=== PATIENT | male | born 1965 | race Caucasian/White ===

== ENCOUNTER 2016-12-13 13:04 | Inpatient (IN) | payer OTHER ==
[2016-12-13] MEDS ORDERED: NORMAL SALINE 1000 ML 1,000 ML IV PRN ×2 (13:17→15:58)
[2016-12-13] MEDS ORDERED: ONDANSETRON HCL INJ/PF 4 MG/2 ML SDV IV ONE (13:17)
[2016-12-13] MEDS ORDERED: MORPHINE SULFATE 10 MG/ML INJ IV ONE (13:17)
--- NOTE | 2016-12-13 13:19 | ER Document Report ---
ED Medical Screen (RME) - General Chief Complaint: Abdominal Pain Stated Complaint: ABDOMINAL PAIN Time Seen by Provider: 12/13/16 13:16 Notes: Patient states he started last evening with right lower quadrant pain. He has had persistent pain and now has fever. It hurts when he moves or urinates. He also states she has had decreased urine output. He states he has had no bowel movements. He denies any previous history of abdominal problems or surgeries. He had nausea but no vomiting. TRAVEL OUTSIDE OF THE [place] IN LAST 30 DAYS: No - Related Data Allergies/Adverse Reactions: iodine [Iodine] Allergy (Unknown, Verified 12/13/16 13:10) Anaphylaxis Penicillins Allergy (Unknown, Verified 12/13/16 13:10) Shellfish * [Shellfish] Allergy (Verified 12/13/16 13:10) Anaphylaxis bee stings Allergy (Uncoded 12/13/16 13:10) Anaphylaxis Past Medical History - Social History Chew tobacco use (# tins/day): No Frequency of alcohol use: None Drug Abuse: None Neurological Medical History: Reports: Hx Migraine Renal/ Medical History: Denies: Hx Peritoneal Dialysis Psychiatric Medical History: Reports: Hx Depression Infectious Medical History: Denies: Hx MRSA Past Surgical History: Reports: Hx Orthopedic Surgery - left arm surgery, injury - Immunizations Immunizations up to date: Yes Hx Diphtheria, Pertussis, Tetanus Vaccination: No - unk Physical Exam - Vital signs Vitals: Temp Pulse Resp BP Pulse Ox 101.3 F H 121 H 20 104/65 91 L 12/13/16 13:08 12/13/16 13:08 12/13/16 13:08 12/13/16 13:08 12/13/16 13:08 Course - Vital Signs Vital signs: Temp Pulse Resp BP Pulse Ox 101.3 F H 121 H 20 104/65 91 L 12/13/16 13:08 12/13/16 13:08 12/13/16 13:08 12/13/16 13:08 12/13/16 13:08
[2016-12-13 14:08] LABS: HEMATOCRIT 46.5 % (37.9-51.0); HEMOGLOBIN 16.1 g/dL (13.5-17.0); HGB HCT DIFFERENCE 1.8; MEAN CORPUSCULAR HEMOGLOBIN 34.8 pg (27.0-33.4); MEAN CORPUSCULAR HGB CONC 34.6 g/dL (32.0-36.0); MEAN CORPUSCULAR VOLUME 101 fl (80-97); RED BLOOD COUNT 4.63 10^6/uL (4.35-5.55); RED CELL DISTRIBUTION WIDTH 13.9 % (11.5-14.0); WHITE BLOOD COUNT 26.1 10^3/uL (4.0-10.5)
[2016-12-13] MEDS ORDERED: KETOROLAC TROMETHAMINE INJ/PF 30 MG/1 ML SDV IV ONE (14:15)
[2016-12-13] MEDS ORDERED: NORMAL SALINE 1000 ML 1,000 ML IV ONE (14:15)
--- NOTE | 2016-12-13 14:15 | ER Document Report ---
ED GI/ - General Mode of Arrival: Ambulatory Information source: Patient TRAVEL OUTSIDE OF THE [place] IN LAST 30 DAYS: No - HPI Patient complains to provider of: Abdominal pain, Dysuria Onset: Yesterday Associated symptoms: Other - see above <SUZIE PERRY - Last Filed: 12/13/16 15:54> <CHLOE MEI - Last Filed: 12/13/16 16:09> - General Chief Complaint: Abdominal Pain Stated Complaint: ABDOMINAL PAIN Time Seen by Provider: 12/13/16 13:16 Notes: Patient is a 51 year old male who presents to the ED with complaints of right sided abdominal pain with onset yesterday afternoon. Patient states today when he lays down he also has pain on the left side. Patient denies vomiting but reports nausea, decreased urine output, and a fever. Patient also has burning with urination and frequency. Patient states this does not feel like when he was here in December 2014 with Diverticulitis. (SUZIE PERRY) - Related Data Allergies/Adverse Reactions: iodine [Iodine] Allergy (Unknown, Verified 12/13/16 13:10) Anaphylaxis Penicillins Allergy (Unknown, Verified 12/13/16 13:10) Shellfish * [Shellfish] Allergy (Verified 12/13/16 13:10) Anaphylaxis bee stings Allergy (Uncoded 12/13/16 13:10) Anaphylaxis Past Medical History - General Information source: Patient - Social History Smoking Status: Current Every Day Smoker Chew tobacco use (# tins/day): No Frequency of alcohol use: None Drug Abuse: None Family History: Reviewed & Not Pertinent Neurological Medical History: Reports: Hx Migraine Renal/ Medical History: Denies: Hx Peritoneal Dialysis GI Medical History: Reports: Hx Diverticulitis, Hx Gastroesophageal Reflux Disease Musculoskeltal Medical History: Reports Hx Multiple Sclerosis Psychiatric Medical History: Reports: Hx Anxiety, Hx Depression Infectious Medical History: Denies: Hx MRSA Past Surgical History: Reports: Hx Orthopedic Surgery - left arm surgery, injury - Immunizations Immunizations up to date: Yes Hx Diphtheria, Pertussis, Tetanus Vaccination: No - unk <SUZIE PERRY - Last Filed: 12/13/16 15:54> Review of Systems - Review of Systems Constitutional: See HPI, Fever EENT: No symptoms reported Cardiovascular: No symptoms reported Respiratory: No symptoms reported Gastrointestinal: See HPI, Abdominal pain, Nausea. denies: Vomiting Genitourinary: See HPI, Burning, Dysuria, Frequency Male Genitourinary: No symptoms reported Musculoskeletal: No symptoms reported Skin: No symptoms reported Hematologic/Lymphatic: No symptoms reported Neurological/Psychological: No symptoms reported <SUZIE PERRY - Last Filed: 12/13/16 15:54> Physical Exam <SUZIE PERRY - Last Filed: 12/13/16 15:54> <CHLOE MEI - Last Filed: 12/13/16 16:09> - Vital signs Vitals: Temp Pulse Resp BP Pulse Ox 101.3 F H 121 H 20 104/65 91 L 12/13/16 13:08 12/13/16 13:08 12/13/16 13:08 12/13/16 13:08 12/13/16 13:08 - Notes Notes: GENERAL: Shaking chills. HEAD: Normocephalic, atraumatic. Eyes: Pupils equal, round, and reactive to light. Extraocular movements intact. ENT: Oral mucosa moist, tongue midline. NECK: Full range of motion. Supple without lymphadenopathy. LUNGS: Clear to auscultation bilaterally. Rhonchi with cough. HEART: Tachycardic. No murmurs, gallops, or rubs. ABDOMEN: Tender in lower abdomen, worse on left than right. Non-distended. Bowel sounds present in all 4 quadrants. EXTREMITIES: Normal ROM. No Edema. NEUROLOGICAL: Alert and oriented x3. Normal speech. No focal neurological deficits. PSYCH: Normal affect, normal mood. SKIN: Warm to touch. Dry, normal turgor. No rashes or lesions noted. (SUZIE PERRY) Course - Laboratory Result Diagrams: 12/13/16 13:30 12/13/16 13:30 - Consults Dr. Shay Cain Time consulted: 15:55 <ORLANDOSUZIE - Last Filed: 12/13/16 15:54> - Laboratory Result Diagrams: 12/13/16 13:30 12/13/16 13:30 - Diagnostic Test Radiology reviewed: Image reviewed, Reports reviewed - Noncontrasted CT scan abdomen pelvis does not show an acute process - Consults Dr. Shay aCin Consulted provider: will come to ER - Admit to telemetry <CHLOE MEI - Last Filed: 12/13/16 16:09> - Vital Signs Vital signs: Temp Pulse Resp BP Pulse Ox 101.3 F H 121 H 20 104/65 91 L 12/13/16 13:08 12/13/16 13:08 12/13/16 13:08 12/13/16 13:08 12/13/16 13:08 - Laboratory Laboratory results interpreted by me: 12/13/16 12/13/16 12/13/16 13:20 13:30 13:30 WBC 26.1 H MCV 101 H MCH 34.8 H Seg Neuts % (Manual) 90 H Lymphocytes % (Manual) 4 L Abs Neuts (Manual) 23.5 H Glucose 113 H AST 14 L ALT 20 L Urine Ketones TRACE H Urine Blood MODERATE H Ur Leukocyte Esterase LARGE H - Consults Dr. Shay Cain Reason for consultation: 12/13/16 15:[address] Shay Cain. Patient is accepted for admission. (SUZIE PERRY) Discharge <SUZIE PERRY - Last Filed: 12/13/16 15:54> - Discharge Admitting Provider: Hospitalist Unit Admitted: Telemetry <CHLOE MEI - Last Filed: 12/13/16 16:09> - Discharge Clinical Impression: Urinary tract infection Qualifiers: Urinary tract infection type: site unspecified Hematuria presence: with hematuria Qualified Code(s): N39.0 - Urinary tract infection, site not specified Leukocytosis Qualifiers: Leukocytosis type: unspecified Qualified Code(s): D72.829 - Elevated white blood cell count, unspecified Fever Qualifiers: Fever type: unspecified Qualified Code(s): R50.9 - Fever, unspecified Condition: Stable Scribe Attestation: 12/13/16 15:24 I personally performed the services described in the documentation, reviewed and edited the documentation which was dictated to the scribe in my presence, and it accurately records my words and actions. (CHLOE MEI) Scribe Documentation - Scribe Written by Scribe:: nitesh Aguilar, 12/13/2016, 1434 acting as scribe for :: Sam <SUZIE PERRY - Last Filed: 12/13/16 15:54>
[2016-12-13] MEDS ORDERED: ACETAMINOPHEN 325 MG TABLET PO ONE (14:17)
[2016-12-13 14:18] LABS: APPEARANCE,URINE SLIGHTLY-CLOUDY; BILIRUBIN,URINE NEGATIVE (NEGATIVE); GLUCOSE, URINE NEGATIVE (NEGATIVE); KETONES,URINE TRACE mg/dL (NEGATIVE); LEUKOCYTE ESTERASE,URINE LARGE (NEGATIVE); NITRITE,URINE NEGATIVE (NEGATIVE); PROTEIN,URINE NEGATIVE (NEGATIVE); URINE SPECIFIC GRAVITY 1.017; UROBILINOGEN,URINE NEGATIVE mg/dL (<2.0)
[2016-12-13 14:19] LABS: ALANINE AMINOTRANSFERASE 20 U/L (21-72); ALBUMIN 4.4 g/dL (3.5-5.0); ALKALINE PHOSPHATASE 103 U/L (38-126); ANION GAP 13 (5-19); ASPARTATE AMINO TRANSFERASE 14 U/L (17-59); BILIRUBIN,DIRECT 0.4 mg/dL (0.0-0.4); BILIRUBIN,TOTAL 0.6 mg/dL (0.2-1.3); BLOOD UREA NITROGEN 12 mg/dL (7-20); CARBON DIOXIDE 23 mmol/L (22-30); CHLORIDE 104 mmol/L (98-107); CREATININE RESULT 0.85 mg/dL (0.52-1.25); GLUCOSE 113 mg/dL (75-110); POTASSIUM 4.2 mmol/L (3.6-5.0); SODIUM 140.1 mmol/L (137-145); TOTAL PROTEIN 7.4 g/dL (6.3-8.2)
[2016-12-13 14:35] LABS: BASOPHILS % (MANUAL) 0 % (0-2); EOSINOPHILS % (MANUAL) 0 % (0-6); LYMPHOCYTES % (MANUAL) 4 % (13-45); TOTAL CELLS COUNTED 100
[2016-12-13 14:36] LABS: TOXIC GRANULATION 1+
[2016-12-13] MEDS ORDERED: LEVOFLOXACIN 750 MG/D5W RTU 150 ML IV ONE (14:59)
--- NOTE | 2016-12-13 15:29 | RADIOLOGY REPORT (SQ) ---
EXAM DESCRIPTION: CT LTD RENAL STONE PROTOCOL ON COMPLETED DATE/TIME: 12/13/2016 3:19 pm REASON FOR STUDY: fever,leukocytosis,UTI,pelvic pain,PMH diverticuli COMPARISON: 01/02/2015 TECHNIQUE: CT scan of the abdomen and pelvis performed without intravenous or oral contrast. Images reviewed with lung, soft tissue, and bone windows. Reconstructed coronal and sagittal MPR images revi ewed. All images stored on PACS. All CT scanners at this facility use dose modulation, iterative reconstruction, and/or weight based d osing when appropriate to reduce radiation dose to as low as reasonably achievable (ALARA). [facility]: Dose Right [facility]: CareDose [facility]: Dose Right [facility]: Teradose 4D [facility]: [employer] RADIATION DOSE: Up-to-date CT equipment and radiation dose reduction techniques were employed. CTDIv ol: 4.2 mGy. DLP: 230 mGy-cm.mGy. LIMITATIONS: None. FINDINGS: LOWER CHEST: Atelectasis. Small hiatal hernia. NON-CONTRASTED LIVER, SPLEEN, ADRENALS: Calcified granuloma in the spleen. PANCREAS: No masses. No peripancreatic inflammatory changes. GALLBLADDER: No identified stones by CT criteria. No inflammatory changes to suggest cholecystitis. RIGHT KIDNEY AND URETER: No suspicious masses. Assessment limited by lack of IV contrast. No signif icant calcifications. No hydronephrosis or hydroureter. LEFT KIDNEY AND URETER: No suspicious masses. Assessment limited by lack of IV contrast. No signifi cant calcifications. No hydronephrosis or hydroureter. AORTA AND RETROPERITONEUM: No aneurysm. No retroperitoneal masses or adenopathy. BOWEL AND PERITONEAL CAVITY: Diverticulosis descending and sigmoid colon. . No obvious masses or in flammatory changes. No free fluid. APPENDIX: Normal. PELVIS, BLADDER, AND ABDOMINAL WALL:No adenopathy. No acute findings. No free fluid. BONES: No significant findings. OTHER: No other significant finding. IMPRESSION: No acute findings in the abdomen or pelvis. TECHNICAL DOCUMENTATION: JOB ID: [id number] Quality ID # [id number]: Final reports with documentation of one or more dose reduction techniques (e.g., Au tomated exposure control, adjustment of the mA and/or kV according to patient size, use of iterative reconstruction technique) 2010 [employer]- All Rights Reserved
[2016-12-13] MEDS ORDERED: ONDANSETRON 4 MG TAB.RAPDIS PO PRN (15:58)
[2016-12-13] MEDS: BUTALB/ACETAMINOPHEN/CAFFEINE 1 TAB EACH PO PRN (18:51)
[2016-12-13] MEDS: TAMSULOSIN HCL 0.4 MG CAP.SR.24H PO SCH (18:52)
[2016-12-13] MEDS: NORMAL SALINE 1000 ML 1,000 ML IV PRN (18:52)
--- NOTE | 2016-12-13 19:05 | RADIOLOGY REPORT (SQ) ---
EXAM DESCRIPTION: CHEST SINGLE VIEW COMPLETED DATE/TIME: 12/13/2016 6:21 pm REASON FOR STUDY: hypoxia COMPARISON: None. EXAM PARAMETERS: NUMBER OF VIEWS: One view. TECHNIQUE: Single frontal radiographic view of the chest acquired. RADIATION DOSE: NA LIMITATIONS: None. FINDINGS: LUNGS AND PLEURA: No opacities, masses or pneumothorax. No pleural effusion. MEDIASTINUM AND HILAR STRUCTURES: No masses. Contour normal. HEART AND VASCULAR STRUCTURES: Heart normal in size. Normal vasculature. BONES: No acute findings. HARDWARE: None in the chest. OTHER: No other significant finding. IMPRESSION: NO ACUTE RADIOGRAPHIC FINDING IN THE CHEST. TECHNICAL DOCUMENTATION: JOB ID: [id number]
--- NOTE | 2016-12-13 19:09 | HISTORY AND PHYSICAL E ---
History and Physical NAME: BE GONZALEZ : 1965 AGE: 51Y ADMITTED: 12/13/2016 ROOM: ED02 CODE STATUS: FULL CODE. PRIMARY CARE PROVIDER: [facility]. CHIEF COMPLAINT: Dysuria. HISTORY OF PRESENT ILLNESS: The patient is a 51-year-old male with a past medical history of posttraumatic stress disorder and chronic pain, opiate dependence and benzodiazepine dependency. The patient presented to the emergency department with a 24-hour history of urinary hesitancy, dysuria, fever and chills. The patient denies any previous history of nephrolithiasis, no previous UTI. The patient denies any history of prostate issues or BPH. The patient also admitted to some nausea and the patient had findings on UA that were suggestive of a UTI. The patient had a white count of 26.1. Initially the patient was found to be hypotensive, tachycardic and febrile, and the patient was referred to the hospitalist for admission and management. PAST MEDICAL HISTORY: Remarkable for: 1. Migraines. 2. Diverticulosis with previous diverticulitis. 3. GERD. 4. Generalized anxiety disorder. 5. Depression. 6. Posttraumatic stress disorder. 7. Behcet disease. PAST SURGICAL HISTORY: Remarkable for orthopedic surgery of the left arm. Negative. ALLERGIES: 1. IODINE. 2. PENICILLIN. 3. SHELLFISH. HOME MEDICATIONS: 1. Lipitor 40 mg p.o. daily. 2. Bupropion SR 150 mg p.o. b.i.d. 3. Vicodin 10/325 one tablet p.o. q.4 h. 4. Vitamin B12 100 mcg p.o. daily. This med reconciliation is in progress. SOCIAL HISTORY: The patient currently resides at home with his who is his surrogate decision maker, Kerrie. She may be reached at [phone]. The patient does smoke about a half a pack a day; he has cut down. The patient has about a 35-year pack history. The patient denies any alcohol abuse or illicit drug use. The patient is disabled. FAMILY MEDICAL HISTORY: Positive for coronary artery disease in family members. REVIEW OF SYSTEMS: CONSTITUTIONAL: The patient denies any dizziness, weakness, loss of appetite, positive for fever and chills. INTEGUMENTARY: Denies any diaphoresis, rash, bruising or itching. HEENT: Denies any vision or hearing loss, nasal drainage, sore throat, or headache. CARDIOVASCULAR: Denies any chest pain, edema, or heart palpitations. RESPIRATORY: Denies any cough, sputum production or hemoptysis. GASTROINTESTINAL: Denies any nausea, vomiting, diarrhea, abdominal pain, bloating, hematemesis, constipation, melena, hematochezia. No epigastric pain. GENITOURINARY: Denies any hematuria or anuria. Positive for dysuria. MUSCULOSKELETAL: The patient does have chronic joint pains. NEUROLOGIC: No seizures, tremors or loss of consciousness. HEMATOLOGICAL: Denies any leslee bleeding. ENDOCRINE: Denies any recent weight changes. PSYCHIATRIC: Denies suicidal or homicidal ideation. The rest of the review of the other organ systems is negative. PHYSICAL EXAMINATION: GENERAL: On examination, the patient is a well-developed, reasonably nourished 51-year-old male who is awake, alert and oriented to person, place, time and situation. He is verbal and conversational and does not appear to be in any acute distress. VITAL SIGNS: Temperature 101.1, pulse 121, respirations 20, blood pressure 104/65, oxygen saturation is 91% on room air. SKIN: Warm and dry. No rash. He is not diaphoretic. HEENT: Pupils are equal, round, and reactive to light and accommodation. Conjunctivae is pink. Sclerae are not icteric. There are no mouth lesions. Tongue is midline. NECK: Supple. No JVP. No palpable lymphadenopathy or thyromegaly. CARDIOVASCULAR: Heart is regular. There is no murmur or rub. CHEST: Clear, symmetrical and unlabored. ABDOMEN: Nontender, nondistended. Bowel sounds are present. No palpable organomegaly. BACK: No CVA tenderness or sacral edema. EXTREMITIES: No clubbing, cyanosis or edema or peripheral signs of embolization. There are +2 pedal pulses are noted bilaterally. PSYCHIATRIC: Appropriate affect. Pleasant mood. DIAGNOSTICS: Labs are as follows: Hematology obtained on 12/13/2016: WBC 26.1, hemoglobin 16.1, hematocrit 46.5, platelet count is 241,000. Chemistry obtained on 12/13/2016: Sodium 140, potassium 4.2, chloride 104, carbon dioxide 23, BUN 12, creatinine 0.85, glucose 113, calcium 9.0, bilirubin 0.6, AST 14, ALT 20, alk phos 103, total protein 7.4, albumin 4.4. Urinalysis obtained on 12/13/2016: Color yellow, appearance slightly cloudy, pH 5.0, specific gravity is 1.017, protein negative, glucose negative, ketones trace, occult blood moderate, nitrite negative, bilirubin negative, urobilinogen negative, leukocyte esterase is large, WBC 177, RBC 14, bacteria 1+, ascorbic acid is negative. CT obtained on 12/13/2016 reveals no acute findings of the abdomen or pelvis. No evidence of hydronephrosis. IMPRESSION AND PLAN: 1. Urinary tract infection. Will continue Levaquin as the patient is allergic to penicillin. Will continue to hydrate the patient and will obtain a PCR and also start the patient on Flomax. The patient has had good urine output as reported, do not feel there is obstructive uropathy. CT is unremarkable of the abdomen. Continue antibiotic coverage and monitor. 2. Sepsis secondary to the above. The patient appears much improved apparently in comparison to arrival to the ER. The patient's blood pressure was reportedly systolically 109/70 with heart rate of 100, which is an improvement. Will continue antipyretics as well and await cultures and sensitivities and follow. 3. Migraine headaches. Will continue p.r.n. Fioricet. 4. DVT prophylaxis. Will add subcutaneous heparin. DISPOSITION: The patient is a FULL CODE. Pending patient's symptomatology and diagnostic findings, will evaluate as needed. Will admit the patient to inpatient telemetry, as the patient's expected length of stay should not surpass 2 midnights. Time spent on this admission including assessment, plan, physical examination, patient education and family meeting is 50 minutes. DICTATING PHYSICIAN: WILLI RIVERA NP [id number] PHY#: [id number] ID: [id number] JOB#: [id number] ACCT: [id number] cc:WILLI RIVERA NP > [facility]
[2016-12-13] MEDS: ACETAMINOPHEN 325 MG TABLET PO PRN (20:00)
[2016-12-13] MEDS: KETOROLAC TROMETHAMINE INJ/PF 30 MG/1 ML SDV IV PRN (20:39)
[2016-12-13] MEDS: HEPARIN SOD (PORCINE) 5,000 UNIT/ML 1 ML SYRINGE SUBCUT SCH (21:30)
[2016-12-13] MEDS: MIRTAZAPINE 15 MG TABLET PO SCH (21:33)
[2016-12-13] MEDS ORDERED: (PENDING PHARMACY ID) (Mirtazapine [Remeron] 15 MG) PO SCH (22:00)
[2016-12-13 22:21] LABS: CHLAM PCR NOT DETECTED (NOT DETECT)
[2016-12-14] MEDS: ACETAMINOPHEN 325 MG TABLET PO PRN ×3 (00:41→13:39)
[2016-12-14] MEDS: KETOROLAC TROMETHAMINE INJ/PF 30 MG/1 ML SDV IV PRN ×4 (02:11→22:25)
[2016-12-14] MEDS: NORMAL SALINE 1000 ML 1,000 ML IV PRN ×3 (02:48→23:26)
[2016-12-14 04:32] LABS: HEMATOCRIT 35.3 % (37.9-51.0); HGB HCT DIFFERENCE 1.3; MEAN CORPUSCULAR HEMOGLOBIN 35.3 pg (27.0-33.4); MEAN CORPUSCULAR HGB CONC 34.7 g/dL (32.0-36.0); MEAN CORPUSCULAR VOLUME 102 fl (80-97); RED BLOOD COUNT 3.47 10^6/uL (4.35-5.55); WHITE BLOOD COUNT 20.3 10^3/uL (4.0-10.5)
[2016-12-14 04:44] LABS: BLOOD UREA NITROGEN 12 mg/dL (7-20); CHLORIDE 110 mmol/L (98-107); CREATININE RESULT 0.84 mg/dL (0.52-1.25); GLUCOSE 109 mg/dL (75-110)
[2016-12-14 04:52] LABS: ANION GAP 7 (5-19); CARBON DIOXIDE 24 mmol/L (22-30); SODIUM 140.6 mmol/L (137-145)
[2016-12-14] MEDS: HEPARIN SOD (PORCINE) 5,000 UNIT/ML 1 ML SYRINGE SUBCUT SCH ×3 (05:06→21:10)
[2016-12-14 05:27] LABS: HEMOGLOBIN 12.2 g/dL (13.5-17.0)
[2016-12-14] MEDS: LEVOFLOXACIN 750 MG/D5W RTU 150 ML IV SCH (09:14)
[2016-12-14] MEDS: METRONIDAZOLE 500 MG/NS RTU 100 ML IV SCH ×3 (11:53→23:29)
--- NOTE | 2016-12-14 12:03 | PROGRESS NOTE E ---
Progress Note NAME: BE GONZALEZ : 1965 AGE: 51Y DATE: 12/14/2016 ROOM: 534 SUBJECTIVE: The patient is lying in bed. He states he feels a little better today. He denies any nausea, vomiting. He did have a fever overnight, but no chills. The patient states that his pain overall is improved. He denies any shortness of breath or dizziness. No chest pain. The patient does not voice any other concerns at this time. REVIEW OF SYSTEMS: The rest of the review of systems is negative. MEDICATIONS: Medications have been reviewed. OBJECTIVE: GENERAL: The patient is a 51-year-old male who is awake, alert, and oriented to person, place, time, and situation. He is verbal and conversational. He does not appear to be in any acute distress. VITAL SIGNS: Temperature is 99.7, pulse 93, respirations 17, blood pressure is 114/69, oxygen saturation is 92% on 2 L nasal cannula. SKIN: Warm and dry. No rash. He is not diaphoretic. HEENT: Pupils equal, round, and reactive to light and accommodation. Conjunctivae pink. NECK: No JVD. CARDIOVASCULAR SYSTEM: Heart is regular. There is no murmur or rub. CHEST: Clear, symmetrical, unlabored. ABDOMEN: Soft, nontender, and nondistended. Bowel sounds are present. No palpable organomegaly. BACK: No CVA tenderness or sacral edema. EXTREMITIES: No clubbing, cyanosis, edema. PSYCHIATRIC: Appropriate affect, pleasant mood. DIAGNOSTIC DATA: Lab values are as follows: Hematology obtained on 12/14/2016. WBCs are 20.3, hemoglobin is 12.12, hematocrit is 35.3, platelet count is 183,000. Chemistries obtained on 12/14/2016: Sodium is 140, potassium 4.0, chloride is 110, carbon dioxide 24, BUN 12, creatinine is 0.84, glucose 109, calcium is 9.0. Cultures are still pending. IMPRESSION AND PLAN: 1. ACUTE PYELONEPHRITIS. Will continue to hydrate and continue antibiotic coverage. Currently awaiting urine culture for the patient on Flomax. His PCRs were negative. The patient has had a good amount of urine output. He does not have any difficulty making a stream. CT of the abdomen was unremarkable. Will continue to follow. 2. MIGRAINE HEADACHES. Will continue p.r.n. Fioricet. 3. OPIOID DEPENDENCE. Will continue the patient's home medication. 4. SEPSIS SECONDARY TO THE ABOVE. As per #1. 5. DVT PROPHYLAXIS. Will continue subcutaneous heparin. DISPOSITION: The patient is a FULL CODE. Pending the patient's symptomatology and diagnostic findings, will reevaluate in the a.m. TIME: Time spent on this followup including assessment, plan, physical examination, patient education, and family meeting was 20 minutes. DICTATING PHYSICIAN: WILLI RIVERA NP [id number] PHY#: [id number] ID: [id number] JOB#: [id number] ACCT: [id number] cc: >
--- NOTE | 2016-12-14 14:04 | Physician Advisory Note ---
Physician Advisor ProgressNote .: Pursuant to the plan for [facility], I have reviewed the medical record for this patient. Physician Advisor Statement: Attg, please clarify: In H&P, at end, it is documented "will admit pt to Inpatient tele, as the pt's expected LOS should not surpass 2MNs". - This sounds contradictory; a veneer stapler error is suspected. Status: 51 yo [employer] pt w/PTSD, chronic pain, opioid/benzo dependence, Behcet dz, ongoing tobacco use presented 12/13 w/Rt abd pain, present on Lt when lying down, w/nausea, decreased UOP, dysuria/frequency/hesitancy, F/C. T101.3, HR121, R20, BP 104/65, sat 91% then 87-88% RA (=P/F ratio 248-257), (+) rhonchi w/cough per ED dr, TTP L>RLQ, WBC 26, CT =no acute, U/A (+) Attending ordered IVF, IV Levaquin, FLomax, O2, dx'ing sepsis/UTI, which was specified further on 12/14 as "acute pyelo w/sepsis". Pt has shown fever as high as 103.1 on night of adm, max 102.8 so far 12/14 since MN, w/persistent tachycardia. He has persistent hypoxemia (90-92% on 2L nc O2 today so far, for P/F ratio of 207 & 229). Baseline O2 sats 95-96% RA on stay in 2014. Leukocytosis continues prominent. Pt clearly needs at least a 2nd night of hospital care, possibly more, before he will be sufficiently stabilized for safe d/c. Appropriate for Inpt status. Also meets Sepsis-3 criteria for sepsis dx based on P/F ratios, w/lowest MAP 77 , stable Cr, TBili so far WNL, platelets still >150 although they appear to be dropping. CK
[2016-12-14] MEDS: TAMSULOSIN HCL 0.4 MG CAP.SR.24H PO SCH (18:31)
[2016-12-14] MEDS: BUTALB/ACETAMINOPHEN/CAFFEINE 1 TAB EACH PO PRN (20:01)
[2016-12-14] MEDS: MIRTAZAPINE 15 MG TABLET PO SCH (22:25)
[2016-12-15] MEDS: KETOROLAC TROMETHAMINE INJ/PF 30 MG/1 ML SDV IV PRN ×3 (04:01→21:16)
[2016-12-15] MEDS: HEPARIN SOD (PORCINE) 5,000 UNIT/ML 1 ML SYRINGE SUBCUT SCH ×3 (05:05→21:07)
[2016-12-15] MEDS: METRONIDAZOLE 500 MG/NS RTU 100 ML IV SCH ×2 (05:11→11:08)
[2016-12-15 05:17] LABS: HEMATOCRIT 34.3 % (37.9-51.0); HEMOGLOBIN 11.7 g/dL (13.5-17.0); HGB HCT DIFFERENCE 0.8; MEAN CORPUSCULAR HEMOGLOBIN 35.2 pg (27.0-33.4); MEAN CORPUSCULAR HGB CONC 34.1 g/dL (32.0-36.0); MEAN CORPUSCULAR VOLUME 103 fl (80-97); RED BLOOD COUNT 3.33 10^6/uL (4.35-5.55); RED CELL DISTRIBUTION WIDTH 13.4 % (11.5-14.0); WHITE BLOOD COUNT 14.9 10^3/uL (4.0-10.5)
[2016-12-15 05:42] LABS: ANION GAP 8 (5-19); BLOOD UREA NITROGEN 9 mg/dL (7-20); CARBON DIOXIDE 22 mmol/L (22-30); CHLORIDE 110 mmol/L (98-107); GLUCOSE 111 mg/dL (75-110); MAGNESIUM 1.7 mg/dL (1.6-2.3); POTASSIUM 3.9 mmol/L (3.6-5.0); SODIUM 140.2 mmol/L (137-145)
[2016-12-15] MEDS: BUTALB/ACETAMINOPHEN/CAFFEINE 1 TAB EACH PO PRN (07:39)
--- NOTE | 2016-12-15 08:28 | PROGRESS NOTE E ---
Progress Note NAME: BE GONZALEZ : 1965 AGE: 51Y DATE: 12/15/2016 ROOM: 534 SUBJECTIVE: The patient is currently lying in bed. He has been up ambulating in the room, states he feels much better today. The patient denies any nausea, vomiting, diarrhea. No shortness of breath, dizziness, chest pain. No fevers, chills. The patient has been afebrile. Blood pressure has been in a good range. The patient does not voice any other concerns at this time. REVIEW OF SYSTEMS: Rest of review of systems negative. MEDICATIONS: Medications have been reviewed. OBJECTIVE: GENERAL: The patient is a 51-year-old male who is awake, alert, and oriented to person, place, time, and situation. She is verbal, conversational, does not appear to be in any acute distress. VITAL SIGNS: Temperature is 99.4, pulse 91, respirations 18, blood pressure 131/80, oxygen saturation 92% on room air. SKIN: Warm and dry. No rash. Not diaphoretic. HEENT: Pupils equal, round, and reactive to light and accommodation. Conjunctivae pink. No JVP. CARDIOVASCULAR SYSTEM: Heart is regular. There is no murmur or rub. CHEST: Clear, symmetrical, unlabored. ABDOMEN: Soft, nontender, nondistended. BACK: No CVA tenderness or sacral edema. EXTREMITIES: No clubbing, cyanosis, edema. PSYCHIATRIC: Appropriate affect, pleasant mood. DIAGNOSTICS: Lab values are as follows: Hematology obtained on 12/15/2016: WBCs are 14.9, hemoglobin is 11.7, hematocrit is 34.3, platelet count is 166,000. Chemistry obtained on 12/15/2016: Sodium is 140, potassium 3.9, chloride is 111, carbon dioxide 22, BUN 9, creatinine is 0.70, glucose 111, calcium is 8.0, magnesium is 1.7. IMPRESSION AND PLAN: 1. GRAM-NEGATIVE MARICHUY PYELONEPHRITIS. Will continue Levaquin and await cultures and sensitivities. Will continue to hydrate. The patient overall has made good improvement. His PCRs were negative. CT of the abdomen was unremarkable. Follow. 2. MIGRAINE HEADACHES. Will continue p.r.n. Fioricet. 3. SEPSIS SECONDARY TO THE ABOVE. This is as per number 1. 4. DVT PROPHYLAXIS. Will continue subcu heparin. DISPOSITION: The patient is a FULL CODE. Pending patient's symptomatology and diagnostic findings, will re-evaluate in the a.m. Time spent on this followup including assessment, plan, physical examination, patient education, and family meeting is 20 minutes. DICTATING PHYSICIAN: WILLI RIVERA NP [id number] PHY#: [id number] ID: [id number] JOB#: [id number] ACCT: [id number] cc: >
[2016-12-15] MEDS: NORMAL SALINE 1000 ML 1,000 ML IV PRN (09:32)
[2016-12-15] MEDS: LEVOFLOXACIN 750 MG/D5W RTU 150 ML IV SCH (09:32)
[2016-12-15] MEDS: METRONIDAZOLE 500 MG TABLET PO SCH ×2 (17:15→23:13)
[2016-12-15] MEDS: TAMSULOSIN HCL 0.4 MG CAP.SR.24H PO SCH (17:16)
[2016-12-15] MEDS: MIRTAZAPINE 15 MG TABLET PO SCH (21:15)
[2016-12-16] MEDS: NORMAL SALINE 1000 ML 1,000 ML IV PRN (00:24)
[2016-12-16] MEDS: KETOROLAC TROMETHAMINE INJ/PF 30 MG/1 ML SDV IV PRN (03:52)
[2016-12-16 05:39] LABS: HEMATOCRIT 33.9 % (37.9-51.0); HEMOGLOBIN 12.1 g/dL (13.5-17.0); HGB HCT DIFFERENCE 2.4; MEAN CORPUSCULAR HEMOGLOBIN 36.1 pg (27.0-33.4); MEAN CORPUSCULAR HGB CONC 35.7 g/dL (32.0-36.0); MEAN CORPUSCULAR VOLUME 101 fl (80-97); RED BLOOD COUNT 3.34 10^6/uL (4.35-5.55); RED CELL DISTRIBUTION WIDTH 13.6 % (11.5-14.0); WHITE BLOOD COUNT 10.6 10^3/uL (4.0-10.5)
[2016-12-16] MEDS: HEPARIN SOD (PORCINE) 5,000 UNIT/ML 1 ML SYRINGE SUBCUT SCH (05:49)
[2016-12-16] MEDS: METRONIDAZOLE 500 MG TABLET PO SCH (05:52)
[2016-12-16] MEDS: BUTALB/ACETAMINOPHEN/CAFFEINE 1 TAB EACH PO PRN (07:28)
[2016-12-16] MEDS ORDERED: BISACODYL 10 MG SUPP.RECT PR ONE (07:30)
[2016-12-16 08:26] VITALS: BP 132/78
--- NOTE | 2016-12-16 09:25 | DISCHARGE SUMMARY E ---
Discharge Summary NAME: BE GONZALEZ : 1965 AGE: 51Y ADMITTED: 12/13/2016 DISCHARGED: 12/16/2016 CODE STATUS: FULL CODE. PRIMARY CARE PROVIDER: DE DISCHARGE DIAGNOSES: 1. Pseudomonas urinary tract infection. 2. Sepsis secondary to #1. 3. Diverticulosis with suspicion for a possible diverticulitis. 4. Migraine headaches. 5. Tobacco dependency. DISCHARGE MEDICATIONS: 1. Levaquin 750 mg p.o. daily, 7 tablets, 0 refills. 2. Flagyl 500 mg p.o. q.6 hours, 42 tablets, 0 refills. 3. Remeron 15 mg p.o. at hour of sleep. 4. Fioricet 1 tablet p.o. daily p.r.n. 5. Tylenol 500 mg p.o. q.6 hours p.r.n. DIET: As tolerated. ACTIVITY: As tolerated. DIAGNOSTICS: Lab values are as follows: Chemistry obtained on 12/15/2016: Sodium is 140, potassium 3.9, chloride is 110, carbon dioxide 22, BUN 9, creatinine is 0.70, glucose 111, calcium is 8.0, magnesium is 1.7, bilirubin is 0.6, AST 14, ALT is 20, alk phos 103, total protein 7.9, albumin 4.4. Hematology obtained on 12/16/2016: WBCs are 10.6, hemoglobin is 12.1, hematocrit is 33.9, platelet count is 205,000. Coagulation obtained on 12/13/2016: D-dimer is 0.27. Urinalysis obtained on 12/13/2016: Color yellow, appearance slightly cloudy, pH 5.0, specific gravity is 1.017, protein negative, glucose negative, ketones trace, occult blood moderate, nitrite negative, bilirubin negative, urobilinogen negative, leukocyte esterase is large, WBC 177, RBC 14, bacteria 1+, ascorbic acid is negative. Serology obtained on 12/13/2016: PCR is not detected. Blood cultures obtained on 12/13/2016 reveal no growth. Urine culture obtained on 12/13/2016 reveals Pseudomonas which is pansensitive. CT of the abdomen reveals no acute finding of the abdomen and the pelvis. Chest x-ray obtained on 12/13/2016 reveals no acute radiographic finding of the chest. PHYSICAL EXAMINATION: GENERAL: On examination, the patient is a well-developed, well-nourished, 51-year-old male who is awake, alert, and oriented to person, place, time, and situation. He is verbal, conversational, ambulatory, and does not appear to be in any acute distress. VITAL SIGNS: Temperature 99.6, pulse 81, respirations 18, blood pressure 125/81, oxygen saturation is 90% on room air. SKIN: Warm and dry. No rash. He is not diaphoretic. HEENT: Pupils equal, round, reactive to light and accommodation. Conjunctivae are pink. No JVP. CARDIOVASCULAR: Heart is regular with no murmur or rub. CHEST: Clear, symmetrical, unlabored. ABDOMEN: Soft, nontender, nondistended. BACK: No CVA tenderness or sacral edema. EXTREMITIES: No clubbing, cyanosis, or edema. PSYCHIATRIC: Appropriate affect. Pleasant mood. HISTORY OF PRESENT ILLNESS: The patient is a 51-year-old male with a past medical history of tobacco dependency and PTSD. The patient presented to the emergency department with a chief complaint of dysuria. The patient gives a 24-hour history of urinary hesitancy, dysuria, fever, and chills. The patient denied any previous history of nephrolithiasis. No previous UTIs. The patient denies any history of prostate issues, BPH, and states that his prostate is checked annually. The patient also admitted to some nausea. The patient had findings on UA suggestive of UTI. The patient had a white count of 26.1. The patient was found to be hypotensive, tachycardia, febrile and the patient was referred to the hospitalist for admission and management. HOSPITAL COURSE: The patient was admitted to continuous telemetry unit. The patient was aggressively hydrated and was continued on Cipro. The patient continued to have fevers for greater than 24 hours. The patient also has underlying history of diverticulosis with previous diverticulitis. Given the patient's persistent symptoms, Flagyl was added with coverage. The patient did have resolution of fever. Symptoms overall has completely resolved. The patient's white count has returned to normal range and the patient is overall much improved. The patient is urinating without issue and is quite eager for discharge. [facility] Time spent on this discharge including assessment, plan, physical examination, patient education, and family meeting is 25 minutes. DICTATING PHYSICIAN: WILLI RIVERA NP [id number] PHY#: [id number] ID: [id number] JOB#: [id number] ACCT: [id number] cc:Ninoska MOSCOSO NP >
[2016-12-16] MEDS ORDERED: LEVOFLOXACIN 750 MG TABLET PO SCH (10:00)
== END 2016-12-16 09:23 | disposition home or self-care (01) | DRG 872 ==
LOC: ER 13:04 → UNDOADMIN 15:58 → EH 15:58 → 5 18:12
PROVIDERS: ADMIT Internal Medicine; ATTEND Internal Medicine
DX: A41.9 Sepsis, unspecified organism (principal); N39.0 Urinary tract infection, site not specified; M35.2 Behcet's disease; K57.92 Diverticulitis of intestine, part unspecified, without perforation or abscess without bleeding; F11.20 Opioid dependence, uncomplicated; B96.5 Pseudomonas (aeruginosa) (mallei) (pseudomallei) as the cause of diseases classified elsewhere; G35 Multiple sclerosis; K57.90 Diverticulosis of intestine, part unspecified, without perforation or abscess without bleeding; G43.909 Migraine, unspecified, not intractable, without status migrainosus; F41.1 Generalized anxiety disorder; F17.200 Nicotine dependence, unspecified, uncomplicated; F43.10 Post-traumatic stress disorder, unspecified; K21.9 Gastro-esophageal reflux disease without esophagitis; Z88.2 Allergy status to sulfonamides; Z88.0 Allergy status to penicillin; Z88.6 Allergy status to analgesic agent; Z91.013 Allergy to seafood; Z88.8 Allergy status to other drugs, medicaments and biological substances
CPT/HCPCS: 36415; 71010; 76380; 80048; 80053; 81001; 83735; 85025; 85027; 85379; 87040; 87086; 87088; 87186; 87491; 87591; 94799; 96365; 96375; 99285; J1644; J1885; J1956; J2270; J2405; J3490; J7030; S0119

== ENCOUNTER 2020-01-15 15:57 | Emergency (ER) | payer OTHER ==
--- NOTE | 2020-01-15 17:52 | ER Document Report ---
ED General - General Chief Complaint: Syncope Stated Complaint: SYNCOPE Time Seen by Provider: 01/15/20 17:50 TRAVEL OUTSIDE OF THE [place] IN LAST 30 DAYS: No - HPI Notes: 54-year-old male presents following syncopal event. Patient states that he was at pain management today getting trigger point injections into his shoulders. He states that he is afraid of needles and has had multiple events in the past where he passes out at the sight of needles. He states that during the injections he "got myself worked up" and passed out. His witnessed the whole event. She states that after the injections his face turned white, he began talking gibberish and then passed out. She and the nurse were able to catch him and were able to guide him down to the floor. No shaking movements noted. She states that he was in an out of it and his face muscles were doing "weird stuff". Whole event lasted for about 10 minutes. No bowel or bladder incontinence. Patient denies biting his tongue. He did have episode of vomiting after. Patient reports he is feeling fine now, he voices no complaints. He states that he was able to transfer himself from the stretcher to the bed. - Related Data Allergies/Adverse Reactions: iodine [Iodine] Allergy (Unknown, Verified 01/15/20 16:19) Anaphylaxis Penicillins Allergy (Unknown, Verified 01/15/20 16:19) Shellfish * [Shellfish] Allergy (Verified 01/15/20 16:19) Anaphylaxis bee stings Allergy (Uncoded 01/15/20 16:19) Anaphylaxis Past Medical History - General Information source: Patient - Social History Smoking Status: Current Every Day Smoker Chew tobacco use (# tins/day): No Frequency of alcohol use: None Drug Abuse: None Family History: Reviewed & Not Pertinent Patient has homicidal ideation: No Neurological Medical History: Reports: Hx Migraine Renal/ Medical History: Denies: Hx Peritoneal Dialysis GI Medical History: Reports: Hx Diverticulitis, Hx Gastroesophageal Reflux Disease Musculoskeletal Medical History: Reports Hx Multiple Sclerosis Psychiatric Medical History: Reports: Hx Anxiety, Hx Depression Infectious Medical History: Denies: Hx MRSA Past Surgical History: Reports: Hx Orthopedic Surgery - left arm surgery, injury - Immunizations Immunizations up to date: Yes Hx Diphtheria, Pertussis, Tetanus Vaccination: No - unk Review of Systems - Review of Systems Constitutional: denies: Chills, Fever EENT: denies: Blurred vision Cardiovascular: denies: Chest pain Respiratory: denies: Short of breath Gastrointestinal: denies: Abdominal pain Genitourinary: No symptoms reported Male Genitourinary: No symptoms reported Musculoskeletal: denies: Joint pain Skin: No symptoms reported Hematologic/Lymphatic: No symptoms reported Neurological/Psychological: denies: Weakness, Headaches, Numbness Physical Exam - Vital signs Vitals: Resp Pulse Ox 14 93 01/15/20 16:31 01/15/20 16:31 - General General appearance: Appears well In distress: None - HEENT Head: Normocephalic, Atraumatic Extraocular movements intact: Yes Pupils: PERRL Neck: Normal, Other - No midline tenderness - Respiratory Chest status: Nontender Breath sounds: Normal - Cardiovascular Rhythm: Regular Heart sounds: Normal auscultation Normal capillary refill: Yes - Abdominal Tenderness: Nontender - Back Back: Nontender - Midline, Other - Band-Aids covering injection sites, bilateral medial to scapula - Extremities General upper extremity: Normal ROM General lower extremity: Normal ROM. No: Edema - Neurological Neuro grossly intact: Yes Cognition: Normal Orientation: AAOx4 Notes: Face is symmetric and speech is clear. Strength is 5/5 in the upper extremities, strength is 5/5 in the lower extremities. Sensation is intact to all extremities. Coordination intact. - Psychological Associated symptoms: Normal affect - Skin Skin Temperature: Warm Course - Re-evaluation Re-evalutation: 01/15/20 18:09 54-year-old male with witnessed syncopal event following trigger point injections to his upper back. Per 's description, no tonic-clonic motion observed, therefore less concerning for seizure. Feel that story is most congruent with situational syncope. Patient is well-appearing on exam, vitals are stable, he has no focal neuro deficits. EKG does not have any ischemic changes. Will check basic labs and head CT. 01/15/20 19:26 CT head and report reviewed. Per radiology, no acute intracranial findings. Labs reviewed. Minimal leukocytosis, possible reactionary. No acute anemia. Electrolytes within normal limits. Creatinine within normal limits. No hypoglycemia. 01/15/20 20:27 Patient continues to be well-appearing. He has tolerated p.o. I discussed with him and his reassuring work-up. Return precautions were given, patient was stable at time of discharge. - Vital Signs Vital signs: Temp Pulse Resp BP Pulse Ox 14 117/91 H 95 01/15/20 20:00 01/15/20 18:00 01/15/20 20:00 - Laboratory Result Diagrams: 01/15/20 16:16 01/15/20 16:16 Laboratory results interpreted by me: 01/15/20 16:16 WBC 12.0 H MCV 100 H MCH 34.2 H - Diagnostic Test Radiology reviewed: Image reviewed, Reports reviewed - EKG Interpretation by Me Additional EKG results interpreted by me: 01/15/20 17:55 EKG is interpreted by me. Normal sinus rhythm, rate 94. Narrow QRS, QTC within normal limits. No ST segment elevation. Discharge - Discharge Clinical Impression: Syncope Qualifiers: Syncope type: unspecified Qualified Code(s): R55 - Syncope and collapse Condition: Stable Disposition: HOME, SELF-CARE Additional Instructions: Please follow-up with your primary care doctor. Return to the emergency department for any concerning worsening symptoms.
[2020-01-15 18:18] LABS: ABSOLUTE BASOPHILS # (AUTO) 0.1 10^3/uL (0.0-0.2); ABSOLUTE EOSINOPHILS # (AUTO) 0.1 10^3/uL (0.0-0.6); ABSOLUTE LYMPHOCYTES (AUTO) 4.3 10^3/uL (0.5-4.7); ABSOLUTE MONOCYTES (AUTO) 0.9 10^3/uL (0.1-1.4); ABSOLUTE NEUT (AUTO) 6.7 10^3/uL (1.7-8.2); BASOPHILS % (AUTO) 0.9 % (0-2); EOSINOPHILS % (AUTO) 0.7 % (0-6); HEMATOCRIT 46.8 % (37.9-51.0); HEMOGLOBIN 15.9 g/dL (13.5-17.0); LYMPHOCYTES % (AUTO) 35.4 % (13-45); MEAN CORPUSCULAR HEMOGLOBIN 34.2 pg (27.0-33.4); MEAN CORPUSCULAR HGB CONC 34.1 g/dL (32.0-36.0); MEAN CORPUSCULAR VOLUME 100 fl (80-97); MONOCYTES % (AUTO) 7.5 % (3-13); PLATELET COUNT 258 10^3/uL (150-450); RED BLOOD COUNT 4.67 10^6/uL (4.35-5.55); RED CELL DISTRIBUTION WIDTH 13.6 % (11.5-14.0); SEGMENTED NEUTROPHILS % (AUTO) 55.5 % (42-78); TOTAL CELLS COUNTED % (AUTO) 100 %
[2020-01-15 18:19] LABS: ANION GAP 10 (5-19); BLOOD UREA NITROGEN 16 mg/dL (7-20); CALCIUM 8.8 mg/dL (8.4-10.2); CARBON DIOXIDE 24 mmol/L (22-30); CHLORIDE 106 mmol/L (98-107); GLUCOSE 101 mg/dL (75-110); POTASSIUM 3.8 mmol/L (3.6-5.0)
--- NOTE | 2020-01-15 18:22 | EKG REPORT ---
SEVERITY:- NORMAL ECG - SINUS RHYTHM : Confirmed by: Iker Dewey MD 15-Jan-2020 18:22:45
--- NOTE | 2020-01-15 19:22 | RADIOLOGY REPORT (SQ) ---
EXAM DESCRIPTION: CT HEAD WITHOUT IMAGES COMPLETED DATE/TIME: 01/15/2020 5:47 pm REASON FOR STUDY: syncope COMPARISON: None. TECHNIQUE: Axial images acquired through the brain without intravenous contrast. Images reviewed wi th bone, brain and subdural windows. Additional sagittal and coronal reconstructions were generated. Images stored on PACS. All CT scanners at this facility use dose modulation, iterative reconstruction, and/or weight based d osing when appropriate to reduce radiation dose to as low as reasonably achievable (ALARA). [facility]: Dose Right [facility]: CareDose [facility]: Dose Right [facility]: Teradose 4D [facility]: [employer]io RADIATION DOSE: CT Rad equipment meets quality standard of care and radiation dose reduction techniq ues were employed. CTDIvol: 53.2 mGy. DLP: 991 mGy-cm. mGy. LIMITATIONS: None. FINDINGS: VENTRICLES: Normal size and contour. CEREBRUM: No masses. No hemorrhage. No midline shift. No evidence for acute infarction. Normal gra y/white matter differentiation. No areas of low density in the white matter. CEREBELLUM: No masses. No hemorrhage. No alteration of density. No evidence for acute infarction. EXTRAAXIAL SPACES: No fluid collections. No masses. ORBITS AND GLOBE: No intra- or extraconal masses. Normal contour of globe without masses. CALVARIUM: No fracture. PARANASAL SINUSES: No fluid or mucosal thickening. SOFT TISSUES: No mass or hematoma. OTHER: No other significant finding. IMPRESSION: NO ACUTE INTRACRANIAL IMAGING FINDINGS. EVIDENCE OF ACUTE STROKE: NO. COMMENT: Quality ID # [id number]: Final reports with documentation of one or more dose reduction techniques (e.g., Automated exposure control, adjustment of the mA and/or kV according to patient size, use of iterative reconstruction technique) TECHNICAL DOCUMENTATION: JOB ID: [id number] 2010 [employer]- All Rights Reserved Reading location - IP/workstation name: [email or web address]
[2020-01-15 21:45] VITALS: BP 115/82
== END 2020-01-15 21:15 | disposition home or self-care (01) ==
LOC: ER 15:57
DX: R55 Syncope and collapse (principal); R11.10 Vomiting, unspecified; D72.829 Elevated white blood cell count, unspecified; F17.200 Nicotine dependence, unspecified, uncomplicated; Z88.0 Allergy status to penicillin; Z87.892 Personal history of anaphylaxis; Z91.013 Allergy to seafood; Z91.030 Bee allergy status
CPT/HCPCS: 36415; 70450; 80048; 85025; 93005; 93010; 99285